=== PATIENT | male | born 1990 | race Native Hawaiian/Other Pacific Islander ===

== ENCOUNTER → 2016-12-25 | Day surgery (SDC) | payer OTHER ==
[~2016-12-25] VITALS: Ht 175.3 cm; Wt 84.4 kg
[~2016-12-25] MED LIST: ACET325T PO; CHLORHEXIDINE GLUCONATE 2 % 1 PACK (2 CLOTHS) TOPICAL PRN; FOLI1TAB4; FOLI1TAB4 PO; INSULIN HUMAN REGULAR 1,000 UNITS/10 ML VIAL SQ PRN; LACTATED RINGER'S 1000 ML INJ 1,000 ML IV SCH; LACTATED RINGER'S 1000 ML IV PRN; LEVE750T8 PO; LIDOCAINE 1%/EPINEPHrine 1:100,000 SOLN 20 ML VIAL ONE; METOPROLOL TARTRATE 25 MG TAB PO PRN; POVIDONE IODINE 5% (ANTISEPSIS KIT) 4 APPLICATIONS EACH NARE PRN; SODIUM CHLORID 0.9% 500 ML IV PRN; ceFAZolin 2 GM PREMIX 50 ML IV SCH
[2016-12-25 07:43] VITALS: BP 131/80; PULSE 85; RESP 20; TEMP 97.3; O2SAT 99
--- NOTE | 2016-12-25 10:17 | RADRPT ---
EXAM DATE/TIME: 12/25/2016 09:43 [place] COMPARISON: No previous studies available for comparison. EXTERNAL COMPARISON : [facility], MRI brain December 01, 2016 INDICATIONS : Post operative aspiration of subgaleal fluid. RADIATION DOSE: 56.35 CTDIvol (mGy) MEDICAL HISTORY : Bleed SURGICAL HISTORY : Craniotomy. ENCOUNTER: Initial ACUITY: 1 day PAIN SCALE: 0/10 LOCATION: cranial TECHNIQUE: Multiple contiguous axial images were obtained of the head. Using automated exposure control and adj ustment of the mA and/or kV according to patient size, radiation dose was kept as low as reasonably a chievable to obtain optimal diagnostic quality images. FINDINGS: There has been left frontoparietal craniectomy and calvarial reconstruction with composite implant. T here has been evacuation of subgaleal fluid noted on the recent MRI. Areas of encephalomalacia in the high convexity frontal and parietal region are stable. 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 No new acute findings are identified. CONCLUSION: Interval evacuation of left sided subgaleal fluid collection French Osborn MD on December 25, 2016 at 10:03 Board Certified Radiologist. This report was verified electronically.
[2016-12-25 10:57] VITALS: BP 129/74; PULSE 72; RESP 16; TEMP 97.4; O2SAT 96
== END | disposition home or self-care (01) ==
LOC: HSDC 07:15 → EDUNIT# 08:30
PROVIDERS: ATTEND Neurological Surgery
DX: G93.89 Other specified disorders of brain (principal); Z87.820 Personal history of traumatic brain injury
CPT/HCPCS: 10140; 70450; 82945; 84157; 87070; 87205; 89050; J0690; J7120